=== PATIENT | female | born 1965 | race African-American/Black ===

== ENCOUNTER 2016-10-05 13:25 | Emergency (ER) | payer SELFPAY ==
[2016-10-05 13:26] VITALS: BP 150/80; PULSE 76; RESP 20; TEMP 98.7; O2SAT 100
[2016-10-05] MEDS ORDERED: IBUPROFEN 800 MG TAB PO ONE (13:45)
[2016-10-05] MEDS ORDERED: IBUP800T23 PO (13:46)
--- NOTE | 2016-10-05 13:47 | PD ---
HPI Chief Complaint: Fall Time Seen by Provider: 13:41 Travel History International Travel<30 days: No Contact w/Intl Traveler<30days: No Traveled to known affect area: No History of Present Illness HPI 51-year-old female presents to the emergency Department with complaint of left knee pain, left great toe pain after slipping on a wet floor yesterday and almost going into the "splits position." Denies hitting her head or loss of consciousness. Denies neck pain or back pain. Denies paresthesias, loss of sensation, decreased range of motion, decreased strength to the affected extremity. Has been ambulatory in the affected extremity. Says her knee pain is not that bad but she is concerned about her toe. Denies fever, vomiting. Took Michelle aspirin this morning for symptom management. No known allergies. Denies anticoagulants. No other modifying factors or associated symptoms. PFSH Social History Tobacco Use: No Allergies-Medications (Allergen,Severity, Reaction): Coded Allergies: No Known Allergies (Unverified , 10/05/16) Reported Meds & Prescriptions Reported Meds & Active Scripts Active Ibuprofen 800 Mg Tab 800 Mg PO Q6HR PRN Reported Hydrocodone-Acetaminophen 5-300 Mg Tab 1 Tab PO Q6H PRN Metformin (Metformin HCl) 500 Mg Tab 500 Mg PO BIDPC With meals Zocor (Simvastatin) 40 Mg Tab 40 Mg PO DAILY Lisinopril 20 Mg Tab 20 Mg PO DAILY Review of Systems Except as stated in HPI: all other systems reviewed are Neg Physical Exam Narrative GENERAL: Well-nourished, well-developed female patient, in no acute distress; afebrile, nontoxic-appearing SKIN: Warm and dry. HEAD: Atraumatic. Normocephalic. EYES: Pupils equal and round. No scleral icterus. No injection or drainage. ENT: Mucosa pink and moist. Airway patent. NECK: Trachea midline. CARDIOVASCULAR: Regular rate. RESPIRATORY: No accessory muscle use. GASTROINTESTINAL: Obese. MUSCULOSKELETAL: Left nonedematous, nonerythematous, and without ecchymosis; full range of motion and flexion to 90; no point tenderness on palpation; joint stable with negative drawer test; no obvious deformity. Patient ambulatory in the room with normal gait. Left Lower extremity is supple and non -tense with 2+ pedal pulse and sensory intact and without erythema or edema. Left great toe with tenderness on palpation; without erythema, edema, ecchymosis ; no obvious deformity. NEUROLOGICAL: Awake and alert. Oriented 3. No obvious cranial nerve deficits. Motor grossly within normal limits. Normal speech. PSYCHIATRIC: Appropriate mood and affect; insight and judgment normal. Data Data Last Documented VS Vital Signs Date Time Temp Pulse Resp B/P Pulse Ox O2 Delivery O2 Flow Rate FiO2 10/05/16 13:50 17 99 Room Air 10/05/16 13:26 98.7 76 150/80 Orders Toe (Min 2vws) (10/05/16 ) Ibuprofen (Motrin) (10/05/16 13:45) [facility] Medical Decision Making Medical Screen Exam Complete: Yes Emergency Medical Condition: Yes Medical Record Reviewed: Yes Differential Diagnosis Toe sprain, knee contusion, toe fracture Narrative Course 51-year-old female with left knee contusion and left great toe injury after slipping and going into the "splits position." Ibuprofen administered in the ER. I do not suspect fracture dislocation of the left knee until imaging is unnecessary at this time. Left great toe x-ray ordered. 1424: Left great toe x-ray with no acute findings. Ibuprofen prescribed for home. Patient verbalizes understanding and agreement with treatment plan. Patient is medically cleared and stable for discharge. Discussed reasons to return to the emergency department. Instructed patient to follow up with primary care provider. Patient agrees with treatment plan. The patients vital signs are stable and the patient is stable for outpatient follow-up and treatment. Patient discharged home, stable and in no acute distress. Diagnosis Primary Impression: Injury of toe on left foot Qualified Code: S99.922A - Injury of toe on left foot, initial encounter Additional Impression: Injury of left knee Qualified Code: S89.92XA - Injury of left knee, initial encounter Referrals: Primary Care Physician Patient Instructions: Contusion in Adults (ED), Fall Prevention (ED), General Instructions Departure Forms: Tests/Procedures, Work Release Enter return to work date: Oct 06, 2016 Additional Instructions: Tylenol or ibuprofen as needed and as directed to reduce pain and inflammation Rest, ice, compress, and elevate extremity to decrease pain and inflammation Avoid aggravating activity; increase activity as tolerated Follow-up with primary care provider Return to the emergency department immediately with worsening symptoms Med/Other Pt SpecificInfo: Prescription(s) given Scripts Ibuprofen 800 Mg [id number] Mg PO Q6HR PRN (PAIN) #30 TAB Ref 0 Prov:Radha Gramajo 10/05/16 Disposition: 01 DISCHARGE HOME Condition: Stable Radha Gramajo Oct 05, 2016 13:46
[2016-10-05] MEDS ORDERED: HYDR-4107 PO (13:59)
[2016-10-05] MEDS ORDERED: ZOCO40TA PO (13:59)
[2016-10-05] MEDS ORDERED: METF500T PO (13:59)
[2016-10-05] MEDS ORDERED: LISI-515 PO (13:59)
--- NOTE | 2016-10-05 14:12 | RADRPT ---
EXAM DATE/TIME: 10/05/2016 14:00 [facility] COMPARISON: No previous studies available for comparison. INDICATIONS : Left foot, first digit pain. Patient fell yesterday and toe bent back. MEDICAL HISTORY : None. SURGICAL HISTORY : None. ENCOUNTER: Initial ACUITY: 2 days PAIN SCORE: 5/10 LOCATION: Left foot, first digit. FINDINGS: Examination of the first digit of the left foot demonstrates no evidence of fracture or dislocation. No radiopaque foreign bodies are seen. The soft tissues are intact. CONCLUSION: Intact great toe. Clem Rubio MD on October 05, 2016 at 14:10 Board Certified Radiologist. This report was verified electronically.
[2016-10-05 14:32] VITALS: BP 120/77; TEMP 97.8
== END 2016-10-05 14:32 | disposition home or self-care (01) ==
LOC: NEPK 13:25
DX: S99.922A Unspecified injury of left foot, initial encounter (principal); S89.92XA Unspecified injury of left lower leg, initial encounter; W01.0XXA Fall on same level from slipping, tripping and stumbling without subsequent striking against object, initial encounter
CPT/HCPCS: 73660; 99283

== ENCOUNTER 2017-03-18 12:11 | Emergency (ER) | payer SELFPAY ==
[~2017-03-18] VITALS: Ht 170.2 cm; Wt 109.0 kg
[~2017-03-18 12:11] MED LIST: HYDR-4107 PO; IBUP1TAB7 PO; LISI-515 PO; METF500T PO; ZOCO40TA PO
[2017-03-18 12:12] VITALS: BP 207/107; PULSE 82; RESP 16; TEMP 98.7; O2SAT 99
[2017-03-18] MEDS ORDERED: SODIUM CHLOR 0.9% 1000 ML INJ 1,000 ML IV ONE (12:24)
[2017-03-18] MEDS ORDERED: SODIUM CHLORIDE 0.9% FLUSH 10 ML FLUSH IVF PRN (12:30)
--- NOTE | 2017-03-18 12:31 | PD ---
HPI Chief Complaint: polyuria and polydipsia Time Seen by Provider: 12:16 Travel History International Travel<30 days: No Contact w/Intl Traveler<30days: No History of Present Illness HPI 51-year-old female states that she's been urinating a lot and drinking a lot and feels like her sugar is high. She states she has been off of her metformin for a couple months because she has been helping her parents. She denies any other concurrent complaints at this time including pain, fever or other acute concerns. She did not check her sugar before coming in. She states she was controlled when she was on metformin twice a day and she thinks the dose was 500 mg but she's not sure. She states she also has not been following a diabetic diet and gain some weight. PFSH Past Medical History Cardiovascular Problems: Yes High Cholesterol: Yes Diabetes: Yes Diminished Hearing: No Hypertension: Yes Past Surgical History Abdominal Surgery: Yes Cholecystectomy: Yes Social History Alcohol Use: Yes (ocassionally) Tobacco Use: No Substance Use: No Allergies-Medications (Allergen,Severity, Reaction): Coded Allergies: No Known Allergies (Unverified Adverse Reaction, Unknown, 03/18/17) Reported Meds & Prescriptions Reported Meds & Active Scripts Active Metformin (Metformin HCl) 500 Mg Tab 500 Mg PO BIDPC With meals Reported Hydrocodone-Acetaminophen 5-300 Mg Tab 1 Tab PO Q6H PRN Zocor (Simvastatin) 40 Mg Tab 40 Mg PO DAILY Lisinopril 20 Mg Tab 20 Mg PO DAILY Review of Systems Except as stated in HPI: all other systems reviewed are Neg Physical Exam Narrative GENERAL: Well-nourished, well-developed patient. SKIN: Warm and dry. HEAD: Normocephalic and atraumatic. EYES: No injection or drainage. ENT: No nasal drainage noted. NECK: Supple, trachea midline. CARDIOVASCULAR: Regular rate and rhythm RESPIRATORY:no increased effort. No accessory muscle use. GASTROINTESTINAL: Abdomen soft, non-tender, nondistended. NEUROLOGICAL: Awake and alert. Motor and sensory grossly within normal limits. Normal speech. Data Data Last Documented VS Vital Signs Date Time Temp Pulse Resp B/P (MAP) Pulse Ox O2 Delivery O2 Flow Rate FiO2 03/18/17 14:23 66 14 145/73 (97) 99 Room Air 03/18/17 12:12 98.7 Orders Orders Complete Blood Count With Diff (03/18/17 12:24) Magnesium (Mg) (03/18/17 12:24) Beta Hydroxybutyrate (Acetone) (03/18/17 12:24) Urinalysis - C+S If Indicated (03/18/17 12:24) Blood Glucose (03/18/17 12:24) Ecg Monitoring (03/18/17 12:24) Iv Access Insert/Monitor (03/18/17 12:24) Oximetry (03/18/17 12:24) NPO (03/18/17 12:24) Sodium Chlor 0.9% 1000 Ml Inj (Ns 1000 M (03/18/17 12:24) Sodium Chloride 0.9% Flush (Ns Flush) (03/18/17 12:30) Basic Metabolic Panel (Bmp) (03/18/17 12:24) Blood Glucose (03/18/17 13:46) Ed Discharge Order (03/18/17 14:26) Labs Laboratory Tests Test 03/18/17 12:25 White Blood Count 14.2 TH/MM3 Red Blood Count 5.81 MIL/MM3 Hemoglobin 15.2 GM/DL Hematocrit 46.4 % Mean Corpuscular Volume 79.8 FL Mean Corpuscular Hemoglobin 26.1 PG Mean Corpuscular Hemoglobin Concent 32.7 % Red Cell Distribution Width 13.9 % Platelet Count 241 TH/MM3 Mean Platelet Volume 9.4 FL Neutrophils (%) (Auto) 62.2 % Lymphocytes (%) (Auto) 27.4 % Monocytes (%) (Auto) 7.4 % Eosinophils (%) (Auto) 2.2 % Basophils (%) (Auto) 0.8 % Neutrophils # (Auto) 8.8 TH/MM3 Lymphocytes # (Auto) 3.9 TH/MM3 Monocytes # (Auto) 1.1 TH/MM3 Eosinophils # (Auto) 0.3 TH/MM3 Basophils # (Auto) 0.1 TH/MM3 CBC Comment DIFF FINAL Differential Comment Urine Color LIGHT-YELLOW Urine Turbidity CLEAR Urine pH 6.0 Urine Specific [place] 1.040 Urine Protein NEG mg/dL Urine Glucose (UA) 1000 mg/dL Urine Ketones NEG mg/dL Urine Occult Blood TRACE Urine Nitrite NEG Urine Bilirubin NEG Urine Urobilinogen LESS THAN 2.0 MG/DL Urine Leukocyte Esterase NEG Urine RBC 1 /hpf Urine WBC 3 /hpf Urine Squamous Epithelial Cells 4 /hpf Urine Bacteria RARE /hpf Microscopic Urinalysis Comment CULT NOT INDICATED Blood Urea Nitrogen 10 MG/DL Creatinine 0.91 MG/DL Random Glucose 453 MG/DL Calcium Level 9.5 MG/DL Magnesium Level 2.2 MG/DL Sodium Level 129 MEQ/L Potassium Level 5.3 MEQ/L Chloride Level 98 MEQ/L Carbon Dioxide Level 24.6 MEQ/L Anion Gap 6 MEQ/L Estimat Glomerular Filtration Rate 78 ML/MIN B-Hydroxybutyrate 0.00 MMOL/L MDM Medical Decision Making Medical Screen Exam Complete: Yes Emergency Medical Condition: Yes Medical Record Reviewed: Yes (pmh confirmed) Interpretation(s) CBC & BMP Diagram 03/18/17 12:25 Calcium Level 9.5, Magnesium Level 2.2 acetone is zero ua no ketones or signs of infection Differential Diagnosis Hyperglycemia from noncompliance, DKA, renal failure Narrative Course Will check blood work, urinalysis and dose with IV fluids and reevaluate Patient's glucose is elevated at 453 with normal acetone, and no ketones in urine, bicarbonate is normal. Patient has no urinary tract infection. She has mild leukocytosis without any others Sirs criteria and no other active complaints at this time other than polyuria and polydipsia which is likely related to her elevated glucose. glucose 292 after ivf, She needs to follow her diabetic diet and will give her a refill of her metformin and she is in agreement to this plan. She was given return instructions. Diagnosis Primary Impression: Poorly controlled diabetes mellitus Additional Impression: Leukocytosis Qualified Codes: D72.829 - Elevated white blood cell count, unspecified Patient Instructions: General Instructions Additional Instructions: return as needed, follow with primary this week, keep a log of your sugars daily for follow up, follow a diabetic diet, take your medications as directed Med/Other Pt SpecificInfo: Prescription(s) given Scripts Metformin (Metformin) 500 Mg Tab 500 MG PO BIDPC for Blood Sugar Management, #60 TAB 0 Refills With meals Prov: Violet Maynard MD 03/18/17 Disposition: 01 DISCHARGE HOME Condition: Stable Viloet Maynard MD Mar 18, 2017 12:31
[2017-03-18 12:39] LABS: AUTOMATED NEUTROPHIL # 8.8 TH/MM3 (1.8-7.7); BASOPHIL # 0.1 TH/MM3 (0-0.2); BASOPHIL % 0.8 % (0.0-2.0); EOSINOPHIL # 0.3 TH/MM3 (0-0.4); EOSINOPHIL % 2.2 % (0.0-4.0); HEMATOCRIT 46.4 % (35.0-46.0); HEMO FLAGS DIFF FINAL; LYMPH % 27.4 % (9.0-44.0); LYMPHOCYTE # 3.9 TH/MM3 (1.0-4.8); MEAN CELL VOLUME 79.8 FL (80.0-100.0); MEAN CORPUSCULAR HEMOGLOBIN 26.1 PG (27.0-34.0); MEAN CORPUSCULAR HGB CONC 32.7 % (32.0-36.0); MONO % 7.4 % (0.0-8.0); NEUT % 62.2 % (16.0-70.0); PLATELET COUNT 241 TH/MM3 (150-450); RED BLOOD COUNT 5.81 MIL/MM3 (4.00-5.30); RED CELL DISTRIBUTION WIDTH 13.9 % (11.6-17.2); WHITE BLOOD COUNT 14.2 TH/MM3 (4.0-11.0)
[2017-03-18 12:55] LABS: BACTERIA, URINE RARE /hpf; BLOOD, URINE TRACE (NEG); COMMENT (UR) CULT NOT INDICATED; CULTURE IF INDICATED CULT NOT INDICATED; GLUCOSE,URINE 1000 mg/dL (NEG); KETONE, URINE NEG (NEG); NITRITE,URINE NEG (NEG); SQUAMOUS EPITHELIAL CELL URINE 4 /hpf (0-5); URINE COLOR LIGHT-YELLOW (YELLW/STRAW)
[2017-03-18 13:11] LABS: BICARBONATE 24.6 MEQ/L (21.0-32.0); MAGNESIUM 2.2 MG/DL (1.5-2.5)
[2017-03-18 13:12] VITALS: O2SAT 98
[2017-03-18 13:12] LABS: POTASSIUM 5.3 MEQ/L (3.5-5.1)
[2017-03-18 13:14] VITALS: BP 167/93; PULSE 67; RESP 16; O2SAT 99
[2017-03-18] MEDS ORDERED: METF500T PO (13:43)
[2017-03-18 14:23] VITALS: BP 145/73; PULSE 66; RESP 14; O2SAT 99
== END 2017-03-18 14:49 | disposition home or self-care (01) ==
LOC: NEPE 12:11
DX: E11.65 Type 2 diabetes mellitus with hyperglycemia (principal); D72.829 Elevated white blood cell count, unspecified; E78.00 Pure hypercholesterolemia, unspecified; I10 Essential (primary) hypertension; Z79.899 Other long term (current) drug therapy
CPT/HCPCS: 80048; 81001; 82010; 83735; 85025; 96360; 99284; J7030